=== PATIENT | male | born 2000 | race Caucasian/White ===

== ENCOUNTER 2020-05-04 23:14 | Emergency (ER) | payer SELFPAY ==
[~2020-05-04] VITALS: Ht 185.4 cm; Wt 119.0 kg
[2020-05-04 23:35] VITALS: BP 163/87
--- NOTE | 2020-05-05 00:04 | NUR ---
patient reports that the knife he cut himself with was not a house knife, he reports his last tetanus shot was atleast 10 years ago. patients wound is not actively bleeding, good csm, good radial pulse
[2020-05-05] MEDS ORDERED: LIDOCAINE-MPF 1%, 5ML ONE (00:09)
[2020-05-05] MEDS ORDERED: LIDOCAINE-MPF 1%, 5ML INFIL ONE (00:30)
--- NOTE | 2020-05-05 00:52 | NUR ---
at bedside suturing lac
[2020-05-05] MEDS ORDERED: NEOSPORIN OINT. PKT 1 PACKET ONE ×2 (01:08→01:12)
== END 2020-05-05 01:28 | disposition home or self-care (01) ==
LOC: ED 23:45
DX: S61.211A Laceration without foreign body of left index finger without damage to nail, initial encounter (principal); W26.0XXA Contact with knife, initial encounter; Y93.89 Activity, other specified; Y92.009 Unspecified place in unspecified non-institutional (private) residence as the place of occurrence of the external cause; Y99.8 Other external cause status
CPT/HCPCS: 12001; 99282

== ENCOUNTER 2020-05-11 17:28 | Emergency (ER) | payer SELFPAY ==
[~2020-05-11] VITALS: Ht 182.9 cm; Wt 116.8 kg
[2020-05-11 17:36] VITALS: BP 129/83
--- NOTE | 2020-05-11 18:20 | NUR ---
ANALYTICAL MANAGER: PT WALKED BACK FROM LOBBY TO ROOM AT THIS TIME.
== END 2020-05-11 18:50 | disposition home or self-care (01) ==
LOC: ED 18:01
DX: S61.211D Laceration without foreign body of left index finger without damage to nail, subsequent encounter (principal); X58.XXXD Exposure to other specified factors, subsequent encounter
CPT/HCPCS: 99281